=== PATIENT | male | born 1960 | race African-American/Black ===

== ENCOUNTER 2018-03-18 19:48 | Emergency (ER) | payer BC ==
[2018-03-18] MEDS ORDERED: Adacel Vial IM ONE ×2 (20:06→20:08)
--- NOTE | 2018-03-18 20:06 | ERPHSYRPT ---
- History of Present Illness Time Seen by Provider: 03/18/18 20:01 Source: patient Exam Limitations: no limitations Physician History: Patient is a right-handed 57-year-old male complaining that he punctured his left wrist with a knife accidentally while he was trying to cut a plastic zip tie. There is only a small wound but it is bleeding significantly. He denies numbness or tingling. He denies loss of range of motion of the hand or wrist. His last tetanus vaccination is unknown. His past medical history is significant for hypertension. Timing/Duration: today Quality: other (laceration) Severity: moderate Location: hands (left wrist) Possible Causes: other (knife) Associated Symptoms: denies symptoms Allergies/Adverse Reactions: No Known Drug Allergies Allergy (Unverified 03/18/18 20:02) Home Medications: Hydrochlorothiazide 25 mg [hydroDIURIL 25 MG] 25 mg PO DAILY 03/18/18 [ History] Lisinopril 10 mg [Zestril 10 MG] 30 mg PO DAILY 03/18/18 [History] - Review of Systems Constitutional: No Fever, No Chills Eyes: No Symptoms Ears, Nose, & Throat: No Symptoms Respiratory: No Cough, No Dyspnea Cardiac: No Chest Pain, No Edema, No Syncope Abdominal/Gastrointestinal: No Abdominal Pain, No Nausea, No Vomiting, No Diarrhea Genitourinary Symptoms: No Dysuria Musculoskeletal: Injury Skin: Other (laceration) Neurological: No Dizziness, No Focal Weakness, No Sensory Changes Psychological: No Symptoms Endocrine: No Symptoms Hematologic/Lymphatic: No Symptoms Immunological/Allergic: No Symptoms All Other Systems: Reviewed and Negative - Nursing Vital Signs Nursing Vital Signs: Initial Vital Signs Temperature 98.1 F 03/18/18 19:48 Pulse Rate 112 H 03/18/18 19:48 Respiratory Rate 16 03/18/18 19:48 Blood Pressure 128/90 03/18/18 19:48 O2 Sat by Pulse Oximetry 94 L 03/18/18 19:48 Pain Scale Pain Intensity 5 - Physical Exam General Appearance: no apparent distress, alert Eye Exam: PERRL/EOMI, eyes nml inspection Ears, Nose, Throat Exam: normal ENT inspection, pharynx normal, moist mucous membranes Neck Exam: normal inspection, non-tender, supple, full range of motion Respiratory Exam: normal breath sounds, lungs clear, No respiratory distress Cardiovascular Exam: regular rate/rhythm, normal heart sounds Gastrointestinal/Abdomen Exam: soft, mass, No tenderness Rectal Exam: not done Back Exam: normal inspection, normal range of motion, No CVA tenderness, No vertebral tenderness Extremity Exam: normal inspection, normal range of motion Neurologic Exam: alert, oriented x 3, cooperative, normal mood/affect, sensation nml, No motor deficits Skin Exam: laceration (2.5 cm laceration to radial aspect of distal left forearm with hemorrhage. No pulsatile bleeding. Radial pulse palpated distal to laceration.) SpO2 Interpretation: normal Oxygen Delivery: Room Air Procedures - Laceration/Wound Repair Left Lateral Volar Wrist Wound Location: Left, lower arm Wound Length (cm): 2.5 Wound's Depth, Shape: superficial Wound Explored: clean Irrigated: No Hibiclens Prep: Yes Anesthesia: local, 1% Lidocaine Volume Anesthetic (ccs): 7 Wound Repaired With: sutures Suture Size/Type: 4-0, ethilon Number of Sutures: 5 Layer Closure?: No Sterile Dressing Applied?: Yes Ordered Tests: Medication Summary Discontinued Medications Generic Name Dose Route Start Last Admin Trade Name Freq PRN Reason Stop Dose Admin Diphtheria/Tetanus/Acell Pertussis 0.5 ml 03/18/18 20:06 03/18/18 20:11 Adacel Vial IM 03/18/18 20:07 0.5 ml .ONCE ONE Administration Diphtheria/Tetanus/Acell Pertussis Confirm 03/18/18 20:08 Adacel Vial Administered 03/18/18 20:09 Dose 0.5 ml IM .STK-MED ONE Lidocaine HCl Confirm 03/18/18 20:19 Xylocaine 1% Hcl 20 Ml Mdv Administered 03/18/18 20:20 Dose 1 ml .ROUTE .STK-MED ONE Lidocaine HCl 10 ml 03/18/18 20:22 03/18/18 20:28 Xylocaine 1% Hcl 20 Ml Mdv IJ 03/18/18 20:23 10 ml STAT ONE Administration Lidocaine HCl Confirm 03/18/18 20:31 Xylocaine 1% Hcl 20 Ml Mdv Administered 03/18/18 20:32 Dose 9 ml .ROUTE .STK-MED ONE - Progress Progress: improved Progress Note: 03/18/18 21:52 Tourniquet applied during suturing. After 5 sutures placed, hemostasis was achieved. Radial pulse palpated and observed distal to laceration. No numbness of fingers. Counseled pt/family regarding: diagnosis, need for follow-up - Departure Time of Disposition: 21:54 Departure Disposition: Home Clinical Impression: Laceration Condition: Stable Critical Care Time: No Additional Instructions: You had a 2.5 cm laceration of your left wrist closed with 5 sutures. After closure, there was good blood flow through the radial artery. You were given Augmentin 875 in the ER. Continue to take Augmentin 875 2 times a day for 10 days. Have the sutures removed by your primary care doctor in about 12 days. If over the next few hours you experience numbness, tingling, or severe pain, immediately either return to this ER or seek immediate care at [facility]. Prescriptions: Amoxicillin/Potassium Clav [Augmentin 875-125 Tablet] 875 mg PO BID #20 tablet
[2018-03-18] MEDS ORDERED: XYLOCAINE 1% HCL 20 ML MDV ONE ×2 (20:19→20:31)
[2018-03-18] MEDS ORDERED: XYLOCAINE 1% HCL 20 ML MDV IJ ONE (20:22)
[2018-03-18] MEDS ORDERED: Augmentin 875-125 Tablet PO ONE (21:54)
[2018-03-18 21:57] VITALS: PULSE 99; O2SAT 96
[2018-03-18] MEDS ORDERED: Augmentin 875-125 Tablet ONE (21:58)
[2018-03-18 22:19] VITALS: BP 113/86
== END 2018-03-18 22:20 | disposition home or self-care (01) ==
LOC: ED 19:48
PROC: 0HQEXZZ Repair Left Lower Arm Skin, External Approach (ICD-10-PCS; principal; 2018-03-18)
DX: S61.512A Laceration without foreign body of left wrist, initial encounter (principal); W26.0XXA Contact with knife, initial encounter; Y93.89 Activity, other specified
CPT/HCPCS: 12001; 90471; 90715; 96372; 99284; A9270-GY